=== PATIENT | female | born 1980 | race African-American/Black ===

== ENCOUNTER 2016-09-01 17:30 | Emergency (ER) | payer OTHER ==
[2016-09-01] MEDS ORDERED: Sulfameth/Trimethoprim DS 800-160mg TAB ONE (18:17)
[2016-09-01] MEDS ORDERED: HYDROcodone/Acetaminophen 10/325 mg Tablet ONE (18:17)
== END 2016-09-01 18:24 | disposition home or self-care (01) ==
LOC: NAV ERS 17:30
DX: L03.311 Cellulitis of abdominal wall (principal); I10 Essential (primary) hypertension; E11.9 Type 2 diabetes mellitus without complications; F32.9 Major depressive disorder, single episode, unspecified; Z79.4 Long term (current) use of insulin; Z79.899 Other long term (current) drug therapy
CPT/HCPCS: 99282

== ENCOUNTER 2016-09-21 20:22 | Emergency (ER) | payer OTHER ==
[2016-09-21] MEDS ORDERED: Nitroglycerin 0.4 MG TAB (25 Tab Bottle) ONE (20:42)
[2016-09-21 20:51] LABS: #Basophils 0.1 thou/uL (0.0-0.2); #Eosinphils 0.2 thou/uL (0.0-0.7); #Lymphocytes 2.9 thou/uL (1.20-3.40); #Monocytes 0.3 thou/uL (0.11-0.59); #Neutrophils 3.9 thou/uL (1.40-6.50); %Basophils 1.4 % (0.0-1.0); %Eosinophils 2.6 % (0.0-10.0); %Lymphocytes 38.9 % (21.0-51.0); %Monocytes 4.4 % (0.0-10.0); Hematocrit 35.4 % (36.0-47.0); Mean Platelet Volume 10.4 fL (7.4-10.4); Red Blood Cell (RBC) Count 4.23 mill/uL (4.20-5.40); White Blood Cell (WBC) Count 7.4 thou/uL (4.8-10.8)
--- NOTE | 2016-09-21 21:04 | RAD ---
SITTING PORTABLE CHEST ONE VIEW: 09/21/16 HISTORY: 36-year-old female with dyspnea. COMPARISON: 05/18/16. Mild cardiomegaly with bilateral vascular congestion, slightly more prominent than prior study witho ut overt edema or confluent pneumonia. IMPRESSION: Mild cardiomegaly with bilateral vascular congestion, worse from 05/18/16. POS: [facility]
[2016-09-21 21:08] LABS: ALT (SGPT) 16 U/L (0-55); AST (SGOT) 11 U/L (5-34); Alkaline Phosphatase 95 U/L (40-150); Anion Gap 15 mmol/L (10-20); BUN (Urea Nitrogen) 11 mg/dL (7.0-18.7); Bilirubin, Total 0.5 mg/dL (0.2-1.2); Calc. Creatinine Clearance 0 mL/min (70-130); Carbon Dioxide 22 mmol/L (22-29); Chloride 105 mmol/L (98-107); Estimated GFR-MDRD Greater than 90; Globulin 3.6 g/dL (2.4-3.5); Protein, Total 7.5 g/dL (6.0-8.3)
[2016-09-21 21:09] LABS: Troponin I 0.015 ng/mL (< 0.028)
[2016-09-21] MEDS ORDERED: Metoprolol Tartrate 5 MG/5 ML VIAL ONE (21:25)
[2016-09-21] MEDS ORDERED: Nitroglycerin 2% Ointment 1 INCH/1 GM Packet ONE (21:25)
[2016-09-21 21:49] LABS: Bilirubin Negative (Negative); Blood, Urine Negative (Negative); Glucose, Urine (Dipstick) 500 mg/dL (Negative); Ketone, Urine Trace mg/dL (Negative); Nitrite Negative (Negative); Protein, Urine (Dipstick) 30 mg/dL (Neg-Trace); Urobilinogen 0.2 mg/dL (0.2-1.0)
[2016-09-21 21:54] LABS: RBC/HPF None Seen HPF (0-3); WBC/HPF None Seen HPF (0-3)
[2016-09-21 21:55] LABS: Bacteria/HPF Rare-Few HPF (None Seen)
[2016-09-21] MEDS ORDERED: Nitroglycerin 50 MG/250 ML BOT 250 ML ONE (22:17)
[2016-09-21] MEDS ORDERED: Furosemide 40 MG/4 ML VIAL ONE (22:49)
== END 2016-09-21 23:11 | disposition short-term general hospital (02) ==
LOC: NAV ERS 20:22
DX: I16.9 Hypertensive crisis, unspecified (principal); E11.9 Type 2 diabetes mellitus without complications; Z79.84 Long term (current) use of oral hypoglycemic drugs; Z79.4 Long term (current) use of insulin
CPT/HCPCS: 71010; 80053; 81003; 81015; 81025; 82553; 83880; 84484; 85025; 85379; 93005; 96365; 96375; J1940; J7620

== ENCOUNTER 2016-12-09 14:14 | Emergency (ER) | payer OTHER ==
[2016-12-09] MEDS ORDERED: Nitroglycerin 0.4 MG TAB (25 Tab Bottle) ONE (14:57)
[2016-12-09] MEDS ORDERED: niCARdipine 20MG In NaCl 20 MG/200 ML BAG ONE (14:59)
[2016-12-09 15:05] LABS: Bilirubin Negative (Negative); Blood, Urine Negative (Negative); Clarity Clear (Clear); Glucose, Urine (Dipstick) 500 mg/dL (Negative); Leukocyte Negative (Negative); Nitrite Negative (Negative); Protein, Urine (Dipstick) 30 mg/dL (Neg-Trace); Urobilinogen 0.2 mg/dL (0.2-1.0); pH, Urine 5.5 (5.0-9.0)
[2016-12-09 15:06] LABS: #Basophils 0.1 thou/uL (0.0-0.2); #Eosinphils 0.1 thou/uL (0.0-0.7); #Lymphocytes 2.6 thou/uL (1.20-3.40); #Monocytes 0.4 thou/uL (0.11-0.59); #Neutrophils 3.7 thou/uL (1.40-6.50); %Basophils 1.4 % (0.0-1.0); %Lymphocytes 37.9 % (21.0-51.0); %Monocytes 5.1 % (0.0-10.0); %Neutrophils 53.7 % (42.0-75.0); Hemoglobin 12.6 g/dL (12.0-16.0); Mean Corpuscular HGB CONC 30.6 g/dL (32.0-36.0); Mean Corpuscular Hemoglobin 25.7 pg (27.0-31.0); Mean Corpuscular Volume 84.1 fl (81.0-99.0); Mean Platelet Volume 10.6 fL (7.4-10.4); Platelet Count 257 thou/uL (130-400); RBC Distribution Width 13.5 % (11.5-14.5); Red Blood Cell (RBC) Count 4.89 mill/uL (4.20-5.40)
[2016-12-09 15:18] LABS: Bacteria/HPF None Seen HPF (None Seen); RBC/HPF None Seen HPF (0-3); Squamous Epithelial 0-3 HPF (0-3); WBC/HPF 0-3 HPF (0-3)
[2016-12-09] MEDS ORDERED: Labetalol HCl 100 MG/20 ML VIAL ONE (15:19)
[2016-12-09 15:25] LABS: CKMB 0.8 ng/mL (0-6.6); Troponin I Less than 0.010 ng/mL (< 0.028)
--- NOTE | 2016-12-09 15:32 | RAD ---
PORTABLE CHEST: Date: 12/09/16 HISTORY: Chest pain. COMPARISON: 09/21/16 study. FINDINGS: Heart size and mediastinum are within normal limits. Lungs are clear of infiltrates. No significant bony findings. IMPRESSION: No active intrathoracic disease. POS: [facility]
[2016-12-09] MEDS ORDERED: Sodium Chloride 0.9% 0 ML ONE ×2 (15:33→15:39)
[2016-12-09] MEDS ORDERED: Insulin Regular 300 UNITS/3 ML VIAL ONE (15:33)
[2016-12-09] MEDS ORDERED: Sodium Chloride 0.9% 100 ML ONE (15:40)
== END 2016-12-09 17:35 | disposition short-term general hospital (02) ==
LOC: NAV ERS 14:14
DX: I16.1 Hypertensive emergency (principal); E11.65 Type 2 diabetes mellitus with hyperglycemia; I11.0 Hypertensive heart disease with heart failure; I50.9 Heart failure, unspecified; Z79.899 Other long term (current) drug therapy
CPT/HCPCS: 36416; 71010; 81003; 81015; 82010; 82553; 83880; 84484; 85025; 85379; 93005; 96365; 96375; 99292; 36415-59; J1815

== ENCOUNTER 2017-02-04 11:15 | Emergency (ER) | payer OTHER | END 2017-02-04 11:49 | disposition home or self-care (01) | LOC: NAV ERS 11:15 | DX: H10.12 Acute atopic conjunctivitis, left eye (principal); I10 Essential (primary) hypertension; I11.0 Hypertensive heart disease with heart failure; I50.9 Heart failure, unspecified; E11.9 Type 2 diabetes mellitus without complications; F32.9 Major depressive disorder, single episode, unspecified; Z79.4 Long term (current) use of insulin; Z79.899 Other long term (current) drug therapy | CPT/HCPCS: 99283 ==

== ENCOUNTER 2017-05-14 23:10 | Emergency (ER) | payer MEDICAID, OTHER | END 2017-05-15 00:15 | disposition home or self-care (01) | LOC: NAV ERS 23:10 | DX: L73.9 Follicular disorder, unspecified (principal); R23.4 Changes in skin texture; B37.3 Candidiasis of vulva and vagina; E11.9 Type 2 diabetes mellitus without complications; I11.0 Hypertensive heart disease with heart failure; I50.9 Heart failure, unspecified; F32.9 Major depressive disorder, single episode, unspecified; Z79.4 Long term (current) use of insulin | CPT/HCPCS: 99282 ==

== ENCOUNTER 2017-06-28 13:41 | Emergency (ER) | payer OTHER, SELFPAY | END 2017-06-28 14:08 | disposition home or self-care (01) | LOC: NAV ERS 13:41 | DX: S46.911A Strain of unspecified muscle, fascia and tendon at shoulder and upper arm level, right arm, initial encounter (principal); I11.0 Hypertensive heart disease with heart failure; I50.9 Heart failure, unspecified; F32.9 Major depressive disorder, single episode, unspecified; E11.9 Type 2 diabetes mellitus without complications; Z79.4 Long term (current) use of insulin; Z79.899 Other long term (current) drug therapy; X58.XXXA Exposure to other specified factors, initial encounter | CPT/HCPCS: 99283 ==

== ENCOUNTER 2017-08-03 04:16 | Emergency (ER) | payer SELFPAY | END 2017-08-03 04:50 | disposition home or self-care (01) | LOC: NAV ERS 04:16 | DX: J20.9 Acute bronchitis, unspecified (principal); I10 Essential (primary) hypertension; E11.9 Type 2 diabetes mellitus without complications; F32.9 Major depressive disorder, single episode, unspecified; Z79.4 Long term (current) use of insulin | CPT/HCPCS: 99283 ==

== ENCOUNTER 2017-09-15 21:30 | Emergency (ER) | payer SELFPAY ==
[2017-09-15] MEDS ORDERED: Furosemide 40 MG/4 ML VIAL ONE (22:14)
[2017-09-15] MEDS ORDERED: hydrALAZINE 20 MG/ML VIAL ONE (22:14)
[2017-09-15 22:23] LABS: #Basophils 0.1 thou/uL (0.0-0.2); #Eosinphils 0.2 thou/uL (0.0-0.7); #Lymphocytes 2.3 thou/uL (1.20-3.40); #Monocytes 0.2 thou/uL (0.11-0.59); %Basophils 1.3 % (0.0-1.0); %Eosinophils 2.7 % (0.0-10.0); %Lymphocytes 40.4 % (21.0-51.0); %Monocytes 3.7 % (0.0-10.0); Hemoglobin 12.1 g/dL (12.0-16.0); Mean Corpuscular HGB CONC 30.8 g/dL (32.0-36.0); Mean Corpuscular Hemoglobin 25.2 pg (27.0-31.0); Mean Corpuscular Volume 81.9 fl (81.0-99.0); Mean Platelet Volume 13.8 fL (7.4-10.4); Platelet Count 211 thou/uL (130-400); Red Blood Cell (RBC) Count 4.79 mill/uL (4.20-5.40); White Blood Cell (WBC) Count 5.8 thou/uL (4.8-10.8)
[2017-09-15 22:30] LABS: ALT (SGPT) 19 U/L (8-55); AST (SGOT) 16 U/L (5-34); Albumin 3.9 g/dL (3.5-5.0); Alkaline Phosphatase 106 U/L (40-150); Anion Gap 14 mmol/L (10-20); BUN (Urea Nitrogen) 9 mg/dL (7.0-18.7); Bilirubin, Total 0.5 mg/dL (0.2-1.2); CK (CPK) 87 U/L (29-168); CKMB 0.8 ng/mL (0-6.6); Calc. Creatinine Clearance 0 mL/min (70-130); Calcium 8.9 mg/dL (7.8-10.44); Carbon Dioxide 23 mmol/L (22-29); Chloride 104 mmol/L (98-107); Estimated GFR-MDRD 87; Globulin 3.5 g/dL (2.4-3.5); Glucose 369 mg/dL (70-105); Lipase 16 U/L (8-78); Potassium 4.4 mmol/L (3.5-5.1); Protein, Total 7.4 g/dL (6.0-8.3); Sodium 137 mmol/L (136-145); Troponin I Less than 0.010 ng/mL (< 0.028)
--- NOTE | 2017-09-15 22:36 | RAD ---
PORTABLE SEMIUPRIGHT FRONTAL CHEST RADIOGRAPH 09/15/17 COMPARISON: 12/09/16 HISTORY: Dyspnea and shortness of breath. FINDINGS: Mild pulmonary vascular prominence. No pneumothorax, pleural fluid, lobar consolidation, or alveolar edema. IMPRESSION: Mild pulmonary vascular congestion. POS: [facility]
[2017-09-15 22:55] LABS: PLT Morphology Comment Appears Adequate; RBC Morphology Normal
== END 2017-09-15 23:25 | disposition home or self-care (01) ==
LOC: NAV ERS 21:30
DX: I11.0 Hypertensive heart disease with heart failure (principal); I50.9 Heart failure, unspecified; E11.9 Type 2 diabetes mellitus without complications; Z79.4 Long term (current) use of insulin; F32.9 Major depressive disorder, single episode, unspecified; Z79.899 Other long term (current) drug therapy
CPT/HCPCS: 71045; 80053; 82553; 83690; 83880; 84484; 85025; 93005; 94760; 96374; 96375; J0360; J1940

== ENCOUNTER 2017-10-04 11:25 | Emergency (ER) | payer BC, SELFPAY ==
[2017-10-04] MEDS ORDERED: Metoprolol Tartrate 5 MG/5 ML VIAL ONE (11:48)
[2017-10-04] MEDS ORDERED: Furosemide 40 MG/4 ML VIAL ONE (11:48)
[2017-10-04 12:11] LABS: #Basophils 0.1 thou/uL (0.0-0.2); #Eosinphils 0.1 thou/uL (0.0-0.7); #Lymphocytes 1.9 thou/uL (1.20-3.40); #Monocytes 0.3 thou/uL (0.11-0.59); #Neutrophils 3.2 thou/uL (1.40-6.50); %Basophils 1.4 % (0.0-1.0); %Lymphocytes 34.6 % (21.0-51.0); Hemoglobin 11.9 g/dL (12.0-16.0); Mean Corpuscular HGB CONC 31.2 g/dL (32.0-36.0); Mean Corpuscular Hemoglobin 25.5 pg (27.0-31.0); Mean Corpuscular Volume 81.6 fl (81.0-99.0); Mean Platelet Volume 10.9 fL (7.4-10.4); Platelet Count 187 thou/uL (130-400); RBC Distribution Width 12.9 % (11.5-14.5); Red Blood Cell (RBC) Count 4.67 mill/uL (4.20-5.40); White Blood Cell (WBC) Count 5.5 thou/uL (4.8-10.8)
--- NOTE | 2017-10-04 12:25 | RAD ---
SITTING PORTABLE CHEST ONE VIEW: History: 37-year-old female with history of dyspnea and difficulty breathing for 1.5 weeks. History of prior c ongestive heart failure. Comparison: 09-15-17 FINDINGS: There is cardiomegaly with bilateral vascular congestion, overall stable from the prior study. Increa sed linear interstitial markings bilaterally. Large body habitus lowers the sensitivity of this study . IMPRESSION: Cardiomegaly with bilateral vascular congestion and minimal stable bilateral interstitial edema. No c onfluent pneumonia. No new process. Continued short term follow up. POS: [facility]
[2017-10-04 12:29] LABS: ALT (SGPT) 18 U/L (8-55); AST (SGOT) 14 U/L (5-34); Albumin 3.9 g/dL (3.5-5.0); Alkaline Phosphatase 78 U/L (40-150); Anion Gap 12 mmol/L (10-20); BUN (Urea Nitrogen) 10 mg/dL (7.0-18.7); Bilirubin, Total 0.7 mg/dL (0.2-1.2); CK (CPK) 114 U/L (29-168); Calc. Creatinine Clearance 0 mL/min (70-130); Calcium 9.2 mg/dL (7.8-10.44); Carbon Dioxide 26 mmol/L (22-29); Chloride 104 mmol/L (98-107); Estimated GFR-MDRD Greater than 90; Globulin 3.3 g/dL (2.4-3.5); Glucose 286 mg/dL (70-105); Potassium 4.5 mmol/L (3.5-5.1); Protein, Total 7.2 g/dL (6.0-8.3); Sodium 137 mmol/L (136-145)
[2017-10-04 12:30] LABS: CKMB 1.1 ng/mL (0-6.6); Troponin I Less than 0.010 ng/mL (< 0.028)
== END 2017-10-04 13:11 | disposition home or self-care (01) ==
LOC: NAV ERS 11:25
DX: I11.0 Hypertensive heart disease with heart failure (principal); I50.9 Heart failure, unspecified; I42.2 Other hypertrophic cardiomyopathy; E11.9 Type 2 diabetes mellitus without complications; Z79.4 Long term (current) use of insulin; Z79.899 Other long term (current) drug therapy; F32.9 Major depressive disorder, single episode, unspecified
CPT/HCPCS: 36415; 71045; 80053; 82550; 82553; 83880; 84484; 85025; 85379; 93005; 96374; 96375; J1940

== ENCOUNTER 2018-02-28 13:29 | Emergency (ER) | payer MEDICAID ==
[2018-02-28] MEDS ORDERED: Acetaminophen/Codeine 30-300mg Tablet ONE (14:02)
[2018-02-28] MEDS ORDERED: cloNIDine 0.2 MG TAB ONE (14:02)
== END 2018-02-28 14:52 | disposition home or self-care (01) ==
LOC: NAV ERS 13:29
DX: M25.811 Other specified joint disorders, right shoulder (principal); I11.0 Hypertensive heart disease with heart failure; I50.9 Heart failure, unspecified; E11.9 Type 2 diabetes mellitus without complications; F32.9 Major depressive disorder, single episode, unspecified; Z79.4 Long term (current) use of insulin; Z79.82 Long term (current) use of aspirin; Z79.899 Other long term (current) drug therapy
CPT/HCPCS: 93798; 99283

== ENCOUNTER 2018-04-14 12:25 | Outpatient (CLI) | payer OTHER ==
--- NOTE | 2018-04-14 14:17 | RAD ---
RIGHT SHOULDER THREE VIEWS: HISTORY: Shoulder pain and arthritis. FINDINGS: The humeral head is normally positioned. The AC joint is normally aligned. No significant degenerat zen change. No acute process seen. IMPRESSION: Unremarkable right shoulder. POS: [facility]
--- NOTE | 2018-04-14 14:20 | RAD ---
CERVICAL SPINE SIX VIEWS: HISTORY: Thoracic outlet syndrome. COMPARISON: None. TECHNIQUE: AP, Swimmer's, left oblique, right oblique, open-mouth, and lateral views of the cervical spine are s ubmitted for interpretation. FINDINGS: The predental space is normal. The odontoid process is unremarkable. On the AP projection, vertebral body heights are maintained. No malalignment. No significant hypert rophy of the facets. Bilaterally, the neural foramina are patent. On the open-mouth projection, limited evaluation of the odontoid process. The lateral masses of C1 a nd C2 articulate appropriately. There is no prevertebral soft tissue swelling. Cervical spine vertebral body heights are maintained on the lateral and Swimmer's views. Limited evaluation of the cervicothoracic junction. IMPRESSION: Unremarkable cervical spine radiograph series. POS: [facility]
== END 2018-04-14 12:26 | disposition home or self-care (01) ==
LOC: NAV RAD 12:25
PROVIDERS: ATTEND Student in an Organized Health Care Education/Training Program
DX: M12.811 Other specific arthropathies, not elsewhere classified, right shoulder (principal); G54.0 Brachial plexus disorders
CPT/HCPCS: 72050

== ENCOUNTER 2018-06-27 05:02 | Emergency (ER) | payer MEDICAID, OTHER ==
[2018-06-27 05:34] LABS: #Basophils 0.1 thou/uL (0.0-0.2); #Eosinphils 0.1 thou/uL (0.0-0.7); #Monocytes 0.5 thou/uL (0.11-0.59); #Neutrophils 3.6 thou/uL (1.40-6.50); %Basophils 1.5 % (0.0-1.0); %Eosinophils 2.3 % (0.0-10.0); %Lymphocytes 31.5 % (21.0-51.0); %Monocytes 7.9 % (0.0-10.0); Hemoglobin 11.9 g/dL (12.0-16.0); Mean Corpuscular HGB CONC 30.9 g/dL (32.0-36.0); Mean Corpuscular Hemoglobin 26.1 pg (27.0-31.0); Mean Corpuscular Volume 84.4 fL (78.0-98.0); Mean Platelet Volume 11.1 fL (7.4-10.4); Platelet Count 230 thou/uL (130-400); RBC Distribution Width 13.4 % (11.5-14.5); Red Blood Cell (RBC) Count 4.55 mill/uL (4.20-5.40); White Blood Cell (WBC) Count 6.4 thou/uL (4.8-10.8)
[2018-06-27] MEDS ORDERED: Furosemide 40 MG/4 ML VIAL ONE (05:38)
[2018-06-27] MEDS ORDERED: hydrALAZINE 20 MG/ML VIAL ONE (05:38)
[2018-06-27 05:45] LABS: ALT (SGPT) 15 U/L (8-55); AST (SGOT) 10 U/L (5-34); Albumin 4.2 g/dL (3.5-5.0); Alkaline Phosphatase 98 U/L (40-150); Anion Gap 15 mmol/L (10-20); BUN (Urea Nitrogen) 9 mg/dL (7.0-18.7); Bilirubin, Total 0.4 mg/dL (0.2-1.2); CK (CPK) 58 U/L (29-168); Calc. Creatinine Clearance 0 mL/min (70-130); Calcium 9.9 mg/dL (7.8-10.44); Carbon Dioxide 25 mmol/L (22-29); Chloride 103 mmol/L (98-107); Estimated GFR-MDRD 75; Globulin 3.4 g/dL (2.4-3.5); Glucose 359 mg/dL (70-105); Potassium 3.9 mmol/L (3.5-5.1); Protein, Total 7.6 g/dL (6.0-8.3); Sodium 139 mmol/L (136-145)
[2018-06-27 05:46] LABS: CKMB 0.8 ng/mL (0-6.6); Troponin I Less than 0.010 ng/mL (< 0.028)
[2018-06-27] MEDS ORDERED: cloNIDine 0.2 MG TAB ONE (06:17)
--- NOTE | 2018-06-27 08:33 | RAD ---
SINGLE VIEW CHEST: Date: 06/27/18 COMPARISON: 10/04/17. HISTORY: Shortness of breath and chest pain. FINDINGS: Single view of the chest shows a normal sized cardiomediastinal silhouette. There is no evidence of c onsolidation, mass, or pleural effusion. The bones are unremarkable. IMPRESSION: No evidence of acute cardiopulmonary disease. POS: [facility]
== END 2018-06-27 06:35 | disposition home or self-care (01) ==
LOC: NAV ERS 05:02
DX: I11.0 Hypertensive heart disease with heart failure (principal); I50.9 Heart failure, unspecified; G47.30 Sleep apnea, unspecified; E11.9 Type 2 diabetes mellitus without complications; F32.9 Major depressive disorder, single episode, unspecified; Z79.1 Long term (current) use of non-steroidal anti-inflammatories (NSAID); Z79.899 Other long term (current) drug therapy; Z79.4 Long term (current) use of insulin
CPT/HCPCS: 71045; 80053; 82553; 83880; 84484; 85025; 93005; 96374; 96375; J0360; J1940

== ENCOUNTER 2019-12-26 20:24 | Emergency (ER) | payer OTHER, SELFPAY ==
[2019-12-26] MEDS ORDERED: Nitroglycerin 2% Ointment 1 INCH/1 GM Packet ONE (20:44)
[2019-12-26 21:08] LABS: #Basophils 0.1 thou/uL (0.0-0.2); #Eosinphils 0.2 thou/uL (0.0-0.7); #Lymphocytes 3.4 thou/uL (1.20-3.40); #Monocytes 0.3 thou/uL (0.11-0.59); #Neutrophils 3.9 thou/uL (1.40-6.50); %Basophils 1.5 % (0.0-1.0); %Eosinophils 2.8 % (0.0-10.0); %Lymphocytes 42.9 % (21.0-51.0); %Monocytes 3.8 % (0.0-10.0); %Neutrophils 49.1 % (42.0-75.0); Mean Corpuscular HGB CONC 29.5 g/dL (32.0-36.0); Mean Corpuscular Hemoglobin 25.7 pg (27.0-31.0); Mean Corpuscular Volume 87.2 fL (78.0-98.0); Mean Platelet Volume 12.1 fL (7.4-10.4); Platelet Count 201 thou/uL (130-400); RBC Distribution Width 12.9 % (11.5-14.5); Red Blood Cell (RBC) Count 4.66 mill/uL (4.20-5.40)
[2019-12-26] MEDS ORDERED: Lisinopril 10 MG TAB ONE ×2 (21:14→22:45)
[2019-12-26] MEDS ORDERED: Carvedilol 25 MG TAB ONE (21:16)
[2019-12-26 21:20] LABS: ALT (SGPT) 19 U/L (8-55); AST (SGOT) 11 U/L (5-34); Albumin 4.1 g/dL (3.5-5.0); Alkaline Phosphatase 132 U/L (40-110); Anion Gap 15 mmol/L (10-20); BUN (Urea Nitrogen) 13 mg/dL (7.0-18.7); Bilirubin, Total 0.4 mg/dL (0.2-1.2); Calc. Creatinine Clearance 0 mL/min (70-130); Calcium 8.9 mg/dL (7.8-10.44); Carbon Dioxide 22 mmol/L (22-29); Chloride 104 mmol/L (98-107); Estimated GFR-MDRD 60; Globulin 3.6 g/dL (2.4-3.5); Glucose 400 mg/dL (70-105); Potassium 3.6 mmol/L (3.5-5.1); Protein, Total 7.7 g/dL (6.0-8.3); Sodium 137 mmol/L (136-145)
--- NOTE | 2019-12-26 21:22 | RAD ---
CHEST ONE VIEW: 12/26/19 HISTORY: Dyspnea. COMPARISON: Radiograph 06/27/18. FINDINGS: Heart size is upper limits of normal. No pneumothorax. No effusion. No confluent air space consolidat ion. No acute osseous abnormality. IMPRESSION: Mild cardiomegaly. POS: [facility]
[2019-12-26 21:27] LABS: Platelet Morphology Comment Appears Adequate; RBC Morphology Normal
== END 2019-12-26 22:55 | disposition home or self-care (01) ==
LOC: NAV ERS 20:24
DX: I16.0 Hypertensive urgency (principal); I11.0 Hypertensive heart disease with heart failure; I50.9 Heart failure, unspecified; E11.9 Type 2 diabetes mellitus without complications; F32.9 Major depressive disorder, single episode, unspecified; G47.30 Sleep apnea, unspecified; Z79.4 Long term (current) use of insulin; Z79.899 Other long term (current) drug therapy
CPT/HCPCS: 36415; 71045; 80053; 83880; 84484; 85025; 93005; 94760

== ENCOUNTER 2020-02-29 17:30 | Emergency (ER) | payer OTHER, SELFPAY ==
[2020-02-29] MEDS ORDERED: Ibuprofen 200 MG TAB ONE (17:40)
[2020-02-29] MEDS ORDERED: Sodium Chloride 0.9% 1,000 ML ONE (18:14)
[2020-02-29] MEDS ORDERED: Dexamethasone 4 mg/ml Vial ONE (18:14)
[2020-02-29] MEDS ORDERED: Ondansetron PF 4 MG/2 ML Vial ONE (18:14)
[2020-02-29 18:50] LABS: ALT (SGPT) 16 U/L (8-55); AST (SGOT) 20 U/L (5-34); Albumin 3.9 g/dL (3.5-5.0); Alkaline Phosphatase 63 U/L (40-110); Anion Gap 15 mmol/L (10-20); BUN (Urea Nitrogen) 8 mg/dL (7.0-18.7); Bilirubin, Total 0.4 mg/dL (0.2-1.2); CK (CPK) 63 U/L (29-168); Calc. Creatinine Clearance 0 mL/min (70-130); Calcium 8.5 mg/dL (7.8-10.44); Carbon Dioxide 23 mmol/L (22-29); Chloride 102 mmol/L (98-107); Estimated GFR-MDRD 80; Globulin 3.6 g/dL (2.4-3.5); Glucose 181 mg/dL (70-105); Lipase 18 U/L (8-78); Potassium 3.7 mmol/L (3.5-5.1); Protein, Total 7.5 g/dL (6.0-8.3); Sodium 136 mmol/L (136-145)
--- NOTE | 2020-02-29 18:50 | RAD ---
EXAM: CHEST ONE VIEW HISTORY: Covid positive. Weakness. Nausea and vomiting. COMPARISON: 12/29/2019 FINDINGS: Cardiac silhouette remains at the upper limits of normal to borderline enlarged. Pulmonary vasculatur e is within normal limits. The lungs are clear. The osseous structures are intact. Chest is stable compared to prior study. IMPRESSION: No acute cardiopulmonary process. Chest radiographs exhibit low sensitivity for evaluation of subtle groundglass opacities which can be seen with viral pneumonitis.
[2020-02-29 19:04] LABS: #Lymphocytes 1.2 thou/uL (1.20-3.40); #Monocytes 0.4 thou/uL (0.11-0.59); #Neutrophils 1.6 thou/uL (1.40-6.50); %Basophils 0.8 % (0.0-1.0); %Eosinophils 0.1 % (0.0-10.0); %Lymphocytes 36.9 % (21.0-51.0); %Monocytes 12.9 % (0.0-10.0); %Neutrophils 49.4 % (42.0-75.0); Hemoglobin 12.4 g/dL (12.0-16.0); Mean Corpuscular Hemoglobin 25.8 pg (27.0-31.0); Mean Corpuscular Volume 86.2 fL (78.0-98.0); Platelet Count 170 thou/uL (130-400); RBC Distribution Width 13.4 % (11.5-14.5); Red Blood Cell (RBC) Count 4.81 mill/uL (4.20-5.40); White Blood Cell (WBC) Count 3.2 thou/uL (4.8-10.8)
[2020-02-29] MEDS ORDERED: Acetaminophen 500 MG TAB ONE (19:21)
== END 2020-02-29 19:30 | disposition home or self-care (01) ==
LOC: NAV ERS 17:30
DX: U07.1 COVID-19 (principal); I11.0 Hypertensive heart disease with heart failure; I50.9 Heart failure, unspecified; G47.30 Sleep apnea, unspecified; E11.9 Type 2 diabetes mellitus without complications; Z79.4 Long term (current) use of insulin; F32.9 Major depressive disorder, single episode, unspecified; Z79.899 Other long term (current) drug therapy
CPT/HCPCS: 36415; 71045; 80053; 82550; 83605; 83690; 83880; 84484; 85025; 86140; 93005; 94760; 96361; 96374; 96375; J1100; J2405; J7050

== ENCOUNTER 2023-03-30 12:01 | Emergency (ER) | payer BC ==
[2023-03-30] MEDS ORDERED: HYDROcodone/Acetaminophen 10/325 mg Tablet ONE (13:20)
[2023-03-30] MEDS ORDERED: Naproxen 500 MG TAB ONE (13:21)
[2023-03-30] MEDS ORDERED: Carvedilol 25 MG TAB ONE (13:21)
[2023-03-30] MEDS ORDERED: methylPREDNISolone Acetate 40 mg/ml Vial ONE (13:21)
== END 2023-03-30 14:33 | disposition home or self-care (01) ==
LOC: NAV ERS 12:01
DX: M16.11 Unilateral primary osteoarthritis, right hip (principal); G89.29 Other chronic pain; M25.551 Pain in right hip; I11.0 Hypertensive heart disease with heart failure; I50.9 Heart failure, unspecified; I48.91 Unspecified atrial fibrillation; E11.9 Type 2 diabetes mellitus without complications; G47.30 Sleep apnea, unspecified; Z79.4 Long term (current) use of insulin; Z79.899 Other long term (current) drug therapy
CPT/HCPCS: 96372; 99283; J1030

== ENCOUNTER 2023-04-04 05:46 | Emergency (ER) | payer BC ==
[2023-04-04] MEDS ORDERED: Gentamicin Ophth Soln 0.3% 5 ml Bottle ONE (06:19)
[2023-04-04] MEDS ORDERED: Carvedilol 25 MG TAB ONE (06:26)
== END 2023-04-04 07:00 | disposition home or self-care (01) ==
LOC: NAV ERS 05:46
DX: B30.9 Viral conjunctivitis, unspecified (principal); I11.0 Hypertensive heart disease with heart failure; I50.9 Heart failure, unspecified; E11.9 Type 2 diabetes mellitus without complications; I48.91 Unspecified atrial fibrillation; G47.30 Sleep apnea, unspecified; Z79.4 Long term (current) use of insulin; Z79.899 Other long term (current) drug therapy
CPT/HCPCS: 87081; 87430; 99283

== ENCOUNTER 2024-12-08 20:04 | Emergency (ER) | payer BC ==
[2024-12-08] MEDS ORDERED: Ibuprofen 200 MG TAB ONE (21:01)
== END 2024-12-08 21:10 | disposition home or self-care (01) ==
LOC: NAV ERS 20:04
DX: J06.9 Acute upper respiratory infection, unspecified (principal); H66.91 Otitis media, unspecified, right ear; B30.9 Viral conjunctivitis, unspecified; E11.9 Type 2 diabetes mellitus without complications; I48.91 Unspecified atrial fibrillation; I11.0 Hypertensive heart disease with heart failure; I50.9 Heart failure, unspecified; Z79.899 Other long term (current) drug therapy; Z79.84 Long term (current) use of oral hypoglycemic drugs
CPT/HCPCS: 99283